=== PATIENT | male | born 1995 | race Caucasian/White ===

== ENCOUNTER 2017-01-06 23:11 | Emergency (ER) | payer BC ==
[2017-01-06 23:28] VITALS: BP 114/62; PULSE 104; RESP 20; TEMP 97.8
--- NOTE | 2017-01-07 00:16 | ED ---
Abdominal Pain HPI - General Chief Complaint: Abdominal Pain Stated Complaint: Abd Pain Time Seen by Provider: 01/06/17 23:36 Source: patient Mode of arrival: ambulatory Limitations: no limitations - History of Present Illness Initial Comments: This patient is a 21-year-old man who presents to be evaluated for abdominal pain. He states that the symptoms started this morning around 9 AM. The symptoms were located in the epigastric and right upper quadrant area. He describes as being aching, mild intensity. The symptoms came on after he had eaten slushy from a gas station. He states that he came in because tonight around 8 PM the symptoms became a little more intense, reaching moderate area of the pain scale. He also had a couple of episodes of vomiting without any blood or coffee-ground material. He does note however that since she has come to the hospital his symptoms have completely resolved. The patient states that he feels well. MD Complaint: abdominal pain -: hour(s) (15) Location: RUQ, epigastric Radiation: none Migration to: no migration Severity: moderate Quality: aching Consistency: now resolved Improves With: nothing Worsens With: nothing Associated Symptoms: vomiting - Related Data Allergies Allergy/AdvReac Type Severity Reaction Status Date / Time No Known Allergies Allergy Verified 01/06/17 23:28 Review of Systems ROS Statement: Those systems with pertinent positive or pertinent negative responses have been documented in the HPI. ROS Other: All systems not noted in ROS Statement are negative. Constitutional: Denies: fever Respiratory: Denies: cough, dyspnea Cardiovascular: Denies: chest pain, palpitations, edema Gastrointestinal: Reports: as per HPI, abdominal pain, nausea, vomiting. Denies : diarrhea, constipation, hematemesis, melena, hematochezia Genitourinary: Denies: dysuria, hematuria Musculoskeletal: Denies: back pain Neurological: Denies: headache, weakness, numbness Past Medical History Past Medical History: No Reported History History of Any Multi-Drug Resistant Organisms: None Reported Additional Past Surgical History / Comment(s): bilateral ingrown toenails. Past Psychological History: No Psychological Hx Reported Smoking Status: Never smoker Past Alcohol Use History: Occasional Past Drug Use History: None Reported General Exam Limitations: no limitations General appearance: alert, in no apparent distress Head exam: Present: atraumatic, normocephalic Eye exam: Present: normal appearance. Absent: scleral icterus, conjunctival injection Respiratory exam: Present: normal lung sounds bilaterally. Absent: respiratory distress, wheezes, rales, rhonchi, stridor Cardiovascular Exam: Present: regular rate, normal rhythm, normal heart sounds. Absent: systolic murmur, diastolic murmur, rubs, gallop GI/Abdominal exam: Present: soft, normal bowel sounds. Absent: distended, tenderness, guarding, rebound, rigid, mass, pulsatile mass, hernia Extremities exam: Present: normal inspection, normal capillary refill. Absent: pedal edema, calf tenderness Back exam: Present: normal inspection. Absent: CVA tenderness (R), CVA tenderness (L) Skin exam: Present: warm, dry, intact, normal color. Absent: rash Course Vital Signs 01/06/17 23:24 Temperature 97.8 F Pulse Rate 104 H Respiratory 20 Rate Blood Pressure 114/62 O2 Sat by Pulse 100 Oximetry Medical Decision Making - Medical Decision Making Discussed some of the differential diagnosis for abdominal pains with the patient and appropriate follow-up and return parameters. At this point all symptoms have resolved and the exam is benign. Disposition Clinical Impression: Abdominal pain Disposition: HOME SELF-CARE Condition: Good Instructions: Gastritis (ED) Referrals: None,Stated [Primary Care Provider] - 1-2 days
== END 2017-01-07 00:25 | disposition home or self-care (01) ==
LOC: EC 23:11
DX: R10.13 Epigastric pain (principal); R10.11 Right upper quadrant pain; R11.10 Vomiting, unspecified
CPT/HCPCS: 99283